=== PATIENT | male | born 1990 ===

== ENCOUNTER 2018-01-16 14:03 | Emergency (ER) | payer OTHER ==
[2018-01-16] MEDS ORDERED: Ibuprofen TAB* 600 MG PO ONE (15:42)
--- NOTE | 2018-01-16 15:47 | UC ---
Natasha Macias Elizabeth, scribed for Odalis Doan MD on 01/16/18 at 1503 . Back Pain HPI - HPI Summary HPI Summary: This patient is a 28 year old M presenting to [facility] with a chief complaint of right lower back pain since 1 week ago. The patient reports that pain began when [place] 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 The patient rates the pain 2/10 in severity. Symptoms aggravated by lifting. Symptoms alleviated by nothing. No analgesia taken. No heat. no stretch. Pt states "I wanted it checked out. Patient denies numbness, tingling, or weakness in legs, or incontinence. Patient has hx of back problems. Patients medication reviewed this visit. - History of Current Complaint Chief Complaint: UCBackPain Stated Complaint: BACK PAIN Time Seen by Provider: 01/16/18 14:52 Hx Obtained From: Patient Onset/Duration: Sudden Onset, Lasting Weeks - 1 week, Still Present Timing: Constant Severity Initially: Mild Severity Currently: Mild Pain Intensity: 2 Pain Scale Used: 0-10 Numeric Back Pain: Is Discrete @ Aggravating Factor(s): Movement - Allergies/Home Medications Allergies/Adverse Reactions: Allergies Allergy/AdvReac Type Severity Reaction Status Date / Time No Known Allergies Allergy Verified 01/16/18 14:15 Home Medications: Home Medications Albuterol HFA INHALER* [Ventolin HFA Inhaler*] 2 puff INH Q4H PRN 01/16/18 [ History Confirmed 01/16/18] PMH/Surg Hx/FS Hx/Imm Hx Previously Healthy: Yes Respiratory History: Asthma - Surgical History Surgical History: Yes Surgery Procedure, Year, and Place: appendectomy - Family History Known Family History: Positive: None - patient denies FHx - Social History Occupation: Employed Full-time Lives: With Family Alcohol Use: None Substance Use Type: None Smoking Status (MU): Never Smoked Tobacco Review of Systems Constitutional: Negative - NEGATIVE FEVER ENT: Negative - NEGATIVE EPISTAXIS Musculoskeletal: Myalgia - Lower back pain Neurological: Negative - NEGATIVE WEAKNESS IN LEGS, NEGATIVE NUMBNESS IN LEGS, NEGATIVE TINGLING IN LEGS All Other Systems Reviewed And Are Negative: Yes Physical Exam - Summary Physical Exam Summary: Vital Signs Reviewed: Yes A+Ox3, no distress Eyes: Conjunctiva Clear ENT: Hearing grossly normal neck: supple Respiratory: Positive: No respiratory distress, No accessory muscle use CT A throughout no w/r Cardiovascular: skin color reflect adequate perfusion RRR nl S1, s2 no m/r abd soft +BS Musculoskeletal Exam: CERDA x 4 without difficulty + TTP right mid lumbar paraspinal with directl palpatioin mild increased pain with flexioin at waist full AROM lower ext b/l witout increased back pain Neurological: Positive: Alert, ambulatory without difficulty Psychological: Positive: Normal Response To Family Skin: Positive: no rash, no ecchymosis Triage Information Reviewed: Yes Vital Signs: Initial Vital Signs Temp 98.5 F 01/16/18 14:10 Pulse 90 01/16/18 14:10 Resp 16 01/16/18 14:10 BP 134/79 01/16/18 14:10 Pulse Ox 98 01/16/18 14:10 Back Pain Course/Dx - Course Course Of Treatment: Pt with back pain mid lumbar, right paraspinal with direct palpation. full ROM. distal LE ROM. pt not taking analgesia. recommend heat , stretch. motrin/apap. lumbar support. Pt refused WC paperwork when discussed. strict return precautions. pt comfortable and in agreement with plan - Differential Dx/Diagnosis Provider Diagnoses: lumbar strain Discharge - Sign-Out/Discharge Documenting (check all that apply): Discharge/Admit/Transfer - Discharge Plan Condition: Stable Disposition: HOME Discharge Disposition Comment: discharge home Patient Education Materials: Low Back Strain (ED), Lower Back Exercises (ED) Referrals: Aly Loera MD [Primary Care Provider] - Additional Instructions: - Okay to alternate ibuprofen (Advil, Motrin) 600mg and Tylenol product (Tylenol ) every 3hours as needed for pain. Take with food. Do NOT take for more than 4- 5 days. --Apply moist heat to your back for 20 minutes at a time, 4-5 times a day. Once your muscles are warm, slow gentle stretching exercises are important -Contact your doctor today to arrange a follow-up appointment next week. Contact a physical therapist to schedule an evaluation and assistance with stretching exercises - consider wearing a back support brace while work -If you pain is uncontrolled or you develop any symptoms down your leg or leg weakness you should go to an emergency department for further treatment - Billing Disposition and Condition Condition: STABLE Disposition: Home The documentation as recorded by the Natasha crawford Elizabeth accurately reflects the service I personally performed and the decisions made by , Odalis Doan MD.
== END 2018-01-16 16:05 | disposition home or self-care (01) ==
LOC: UCEAST 14:03
DX: S39.012A Strain of muscle, fascia and tendon of lower back, initial encounter (principal); X50.0XXA Overexertion from strenuous movement or load, initial encounter; Y92.520 Airport as the place of occurrence of the external cause; Y99.0 Civilian activity done for income or pay
CPT/HCPCS: 99212; A9270-GY; G0463